=== PATIENT | male | born 1970 | race Caucasian/White ===

== ENCOUNTER 2019-01-05 15:39 | Emergency (ER) | payer SELFPAY ==
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
[2019-01-05] MEDS ORDERED: Lidocaine 1% 10 ML MDV INJECT ONE (16:15)
[2019-01-05] MEDS ORDERED: Diphtheria,Pertussis(Acell),Tetanus Vaccine 0.5 ML Syringe IM ONE (16:15)
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
[2019-01-05] MEDS ORDERED: Ketorolac 60 MG/2 ML SDV IM ONE (17:53)
== END 2019-01-05 18:30 | disposition home or self-care (01) ==
LOC: MW.ED 15:39
DX: S01.81XA Laceration without foreign body of other part of head, initial encounter (principal); Z23 Encounter for immunization; V89.2XXA Person injured in unspecified motor-vehicle accident, traffic, initial encounter
CPT/HCPCS: 12014; 70450; 71045; 72125; 90471; 90715; 99283; J1885; J2001